=== PATIENT | female | born 1950 | race Caucasian/White ===

== ENCOUNTER 2017-01-02 13:24 | Emergency (ER) | payer MEDICARE, OTHER ==
--- NOTE | 2017-01-02 13:57 | ERNOTE ---
Dyspnea - Date Date of Service: 01/02/17 - General Presenting Symptoms: shortness of breath Time Seen by Provider: 01/02/17 13:49 Source: patient, RN notes reviewed Exam Limitations: no limitations - Immun/Allergies/Home Medications Immunizations: IMMUNIZATION HX Immunizations Up to Date Yes History of Influenza Vaccine No Hx Pneumococcal Vaccination Yes Allergies/Adverse Reactions: Allergies amitriptyline Allergy (Verified 01/02/17 13:45) Hives latex Allergy (Verified 01/02/17 13:45) nalbuphine [From Nubain] Allergy (Verified 01/02/17 13:45) methadone Adverse Reaction (Verified 01/02/17 13:45) Other NSAIDS (Non-Steroidal Anti-Inflamma Adverse Reaction (Verified 01/02/17 13:45) Hives quetiapine [From Seroquel] Adverse Reaction (Verified 01/02/17 13:45) Home Medications: HOME MEDICATIONS ALPRAZolam [Xanax] 1 mg PO QID 01/02/17 [Last Taken Unknown] Acetaminophen 325 mg PO QID PRN 01/02/17 [Last Taken Unknown] Aspirin 81 mg PO DAILY 01/02/17 [Last Taken Unknown] Budesonide/Formoterol Fumarate [Symbicort 160-4.5 Mcg Inhaler] 10.2 gm IH BID [Last Taken Unknown] Doxycycline Hyclate [Vibratab] 100 mg PO BID 01/02/17 [Last Taken Unknown] Duloxetine HCl [Cymbalta] 60 mg PO BID 01/02/17 [Last Taken Unknown] Estradiol [Estrace Vaginal] 1 appl VG 01/02/17 [Last Taken Unknown] Gabapentin 300 mg PO TID 01/02/17 [Last Taken Unknown] Ipratropium/Albuterol Sulfate [Iprat-Albut 0.5-3(2.5) mg/3 ml] 3 ml IH QID PRN 01/02/17 [Last Taken Unknown] Levothyroxine Sodium [Synthroid] 37.5 mcg PO MOTUWETH 01/02/17 [Last Taken Unknown] Levothyroxine Sodium [Synthroid] 50 mcg PO SUFRSA 01/02/17 [Last Taken Unknown] Memantine HCl [Namenda Xr] 28 mg PO 01/02/17 [Last Taken Unknown] Mirtazapine [Mirtazapine (Remeron)] 15 mg PO HS 01/02/17 [Last Taken Unknown] Multivitamin [Multivitamins] 1 each PO 01/02/17 [Last Taken Unknown] Nitroglycerin [Nitrostat] 0.4 mg SL Q5MIN PRN 01/02/17 [Last Taken Unknown] Polyethylene Glycol 3350 [Miralax] 17 gm PO 01/02/17 [Last Taken Unknown] Trolamine Salicylate [Aspercreme] 1 appl TP 01/02/17 [Last Taken Unknown] oxyCODONE HCL [Oxycodone] 5 mg PO BID 01/02/17 [Last Taken Unknown] oxyCODONE HCL [Oxycontin] 40 mg PO BID 01/02/17 [Last Taken Unknown] - History of Present Illness Narrative: 66 year old female brought to the ED by her son for increasing shortness of breath over the past several weeks. She reports that she is barely able to get up off the couch and has pain all over that she rates as a 9 despite being on a total of 90 mg of oxycodone daily. She was recently diagnosed with a pneumonia and is on doxycycline. She lives in [place] and has a doctor there, but reports that her home health nurses and sons felt like she should come here for further evaluation since her condition continues to decline. She is on 2 liters of oxygen continually. Prior Treatment: Reports: recently seen, treated by physician, currently on antibiotics Review of Systems - Review of Systems Constitutional: Present: recent illness, fatigue, decreased activity level. Absent: fever, chills EYE: Present: no symptoms reported ENT: Absent: nose congestion, sore throat Respiratory: Present: shortness of breath, cough. Absent: orthopnea, wheezing Cardiology: Absent: chest pain, syncope Gastrointestinal/Abdominal: Absent: nausea, vomiting, diarrhea, abdominal pain Genitourinary: Present: no symptoms reported Musculoskeletal: Present: back pain, muscle pain, joint pain Skin: Absent: lesions, lumps Neurological: Absent: headache, dizziness/light-headedness Endocrine: Present: no symptoms reported Hematologic/Lymphatic: Present: no symptoms reported Psych: Present: no symptoms reported - Patient's Past Medical History Patient History - Medical: Hypothyroidism, Other Patient History - Cardiac/Respiratory: COPD, Pneumonia, TIA, Home O2 Use Patient History - Cancer: No Hx of Cancer Patient History - Surgical Procedures: Appendectomy, Cholecystectomy, Hysterectomy, Other, Orthopedic Patient History - Other: None - Social History Living Situations: alone Psych History: No pertinent hx Smoking Status: Former smoker Have you smoked in the past 12 months: No Do you dip or chew tobacco: No Alcohol Use: none Drug Use: none - Immunizations Immunizations Up to Date: Yes Hx Pneumococcal Vaccination: Yes History of Influenza Vaccine: No Physical Exam - Physical Exam General Appearance: Present: alert, no apparent distress, thin Head Exam: Present: normal inspection Neck: Present: normal inspection, nontender, supple Respiratory: Present: no respiratory distress, no accessory muscle use, expiration (prolonged), crackles Cardiovascular/Chest: Present: regular rate, rhythm, no murmur Extremity Exam: Present: normal inspection, normal range of motion, no edema Neurological Exam: Present: alert, oriented, normal mood/affect Skin Exam: Present: warm/dry, pallor ED Progress - Results and Orders Patient's Lab Results:: I have reviewed the patient's lab results. - Vital Signs Patient's Vital Signs:: I have reviewed the patient's vital signs. Vital Signs: Vital Signs 01/02/17 13:32 Temperature 36.2 C L Pulse Rate 100 Respiratory 18 Rate Blood Pressure 123/78 O2 Sat by Pulse 95 Oximetry - EKG EKG: NSR EKG read: Reviewed by me - X-Ray X-Ray #1 X-Ray: chest Interpretation: Reviewed by me X-ray Comments: No focal consolidation or infiltrate noted - Progress/Reassessment Chief Complaint: Dyspnea Progress:: Unchanged Progress Note-Subjective: 01/02/17 15:14 No acute findings, patient has multiple conditions that appear to be stable at the present time. She has follow up scheduled with her PCP in 3 days. We discussed her test results and that her ongoing shortness of breath and pain are likely due to worsening of her chronic ailments. Departure Clinical Impression: Generalized weakness Dyspnea Qualifiers: Dyspnea type: unspecified Qualified Code(s): R06.00 - Dyspnea, unspecified - Departure Disposition: Home Follow Up Needed Condition: Stable Additional Instructions: Continue your current medications Follow up with your doctor as scheduled this week
[2017-01-02 14:12] LABS: Hematocrit 39.9 % (37.0-47.0); Hemoglobin 12.9 gm/dL (12.5-16.0); Mean Cell Volume 90.5 fl (78-100); Mean Corpuscular Hemoglobin 29.3 pg (27-31); Mean Corpuscular Hgb Conc 32.3 g/dl (32-36); Mean Platelet Volume 10.5 fl (6.0-9.5); Neutrophil # 4.9 K/mm3 (1.3-6.0); Neutrophil % 55.7 % (42-75.0); Platelet Count 351 K/mm3 (150-450); Red Blood Count 4.41 M/mm3 (4.2-5.4); Red Cell Distribution Width 12.9 % (11.5-14.0); White Blood Count 8.7 K/mm3 (4.0-10.5)
[2017-01-02 14:32] LABS: Albumin * 3.5 gm/dl (3.4-5.0); Anion Gap 13.2 mmol/L (6.8-13.8); BUN/Creatinine Ratio 20.8 (9.0-21.6); Bilirubin, Total 0.4 mg/dL (0.0-1.1); Ca. Corrected For Albumin 9.7 mg/dL (8.4-10.2); Calcium * 9.6 mg/dL (7.9-10.9); Carbon Dioxide 28.3 mmol/L (24-32.6); Potassium 4.5 mmol/L (3.4-4.6); Total Protein 8.1 gm/dL (6.2-8.2)
[2017-01-02 15:18] VITALS: BP 119/60
== END 2017-01-02 15:17 | disposition home or self-care (01) ==
LOC: ER 13:24
DX: R06.00 Dyspnea, unspecified (principal); R53.1 Weakness; Z86.73 Personal history of transient ischemic attack (TIA), and cerebral infarction without residual deficits; Z87.891 Personal history of nicotine dependence; E03.9 Hypothyroidism, unspecified; J44.9 Chronic obstructive pulmonary disease, unspecified